=== PATIENT | female | born 2000 | race Caucasian/White ===

== ENCOUNTER 2022-03-09 12:25 | Emergency (ER) | payer OTHER, SELFPAY ==
[2022-03-09 12:34] VITALS: BP 117/61; PULSE 77; RESP 16; TEMP 36.8; O2SAT 100
[2022-03-09 12:38] VITALS: BP 117/61; PULSE 77; RESP 16; TEMP 36.8; O2SAT 100
--- NOTE | 2022-03-09 13:10 | ED.BACK ---
HPI - Back Pain/Injury General Chief Complaint: Back Pain/Injury Stated Complaint: Low Back Pain Time Seen by Provider: 03/09/22 13:03 Source: patient and RN notes reviewed Mode of arrival: ambulatory Limitations: no limitations History of Present Illness HPI Narrative: Patient presents today complaining of bilateral low back pain, right greater than left x4 to 5 days. Denies radiation of the pain. Denies numbness or tingling in the legs or genitals. Denies any loss of bowel or bladder control. She believes her pain may have originated after lifting heavy objects and unloading a truck at work, but she is not certain. Denies any known injury or trauma. She currently rates her pain 06/17 and has been taking Tylenol with mild relief. Denies any history of back surgeries, but reports history of sciatica. MD elicited complaint: back pain Related Data Home Medications Medication Instructions Recorded Confirmed dicyclomine 10 mg PO TID PRN 10/14/19 03/09/22 escitalopram oxalate 20 mg PO DAILY 03/09/22 03/09/22 Allergies Allergy/AdvReac Type Severity Reaction Status Date / Time Penicillins Allergy Unknown Rash Verified 03/09/22 12:37 Sulfa (Sulfonamide Allergy Unknown Rash Verified 03/09/22 12:37 Antibiotics) Review of Systems Review of Systems: CONSTITUTIONAL: Denies body aches, fever, chills, or sweats. EYES: Denies visual changes, redness, or discharge. ENT: Denies rhinorrhea, congestion, sore throat, or otalgia. CARDIOVASCULAR: Denies chest pain, palpitations, or edema. RESPIRATORY: Denies cough or dyspnea. GASTROINTESTINAL: Denies abdominal pain, nausea, vomiting, or diarrhea. GENITOURINARY: Denies dysuria or hematuria. SKIN: Denies rash, itching, or wounds. MUSCULOSKELETAL: Denies joint pain, or myalgia. + Low back pain NEUROLOGIC: Denies headache, numbness, tingling, or weakness. PSYCH: Denies depression or anxiety. PMFSH Comments At time of signature, I have reviewed and agree with nursing past medical, surgical, social and family history unless otherwise noted. Please see nursing chart for further information. There is no relevant family history pertinent to the presenting complaint Exam Narrative: GENERAL: Well-appearing, well-nourished, and in no acute distress. HEAD: Normocephalic, atraumatic. EYES: EOMI. No redness or drainage. Conjunctivae normal. ENT: Mucous membranes pink and moist. NECK: Normal AROM. CHEST: No respiratory distress. MUSCULOSKELETAL: No bony tenderness of the spine. Right lower lumbar paraspinal muscle tenderness. Patient localizes pain in the bilateral lower lumbar paraspinal muscles. No SI joint tenderness bilaterally. Distal sensation intact. Saddle sensation intact. Capillary refill normal. Dorsiflexion and plantarflexion equal and strong against resistance. Patellar reflexes 2+ bilaterally EXTREMITIES: Normal range of motion. No edema. SKIN: Warm, dry, no rash. Capillary refill normal. Normal skin turgor. NEURO: No focal deficits. Alert and oriented x3. Gait steady. PSYCH: Normal affect. No signs of depression or anxiety. Course Course Level of Care: Express Care Visit Vital Signs Vital signs: Vital Signs Temperature 98.3 F 03/09/22 12:34 Pulse Rate 77 03/09/22 12:34 Respiratory Rate 16 03/09/22 12:34 Blood Pressure 117/61 03/09/22 12:34 Pulse Oximetry 100 03/09/22 12:34 Temperature 98.3 F 03/09/22 12:38 Pulse Rate 77 03/09/22 12:38 Respiratory Rate 16 03/09/22 12:38 Blood Pressure 117/61 03/09/22 12:38 Pulse Oximetry 100 03/09/22 12:38 Reviewed MDM - Back Pain/Injury Differential Diagnosis Differential diagnosis: Likely lumbar radiculopathy and strain of lumbar region Critical Care Time Critical Care Time Critical Care Time: No Discharge Plan Discharge Clinical Impression: Low back strain Qualifiers: Encounter type: initial encounter Qualified Code(s): S39.012A - Strain of muscle, fascia and tendon of
== END 2022-03-09 13:21 | disposition home or self-care (01) ==
PROVIDERS: Emergency Provider Nurse Practitioner
DX: S39.012A Strain of muscle, fascia and tendon of lower back, initial encounter (principal); X50.0XXA Overexertion from strenuous movement or load, initial encounter
CPT/HCPCS: 99213; G0463

== ENCOUNTER 2023-03-29 17:22 | Emergency (ER) | payer OTHER, SELFPAY ==
[2023-03-29 17:28] VITALS: BP 144/56; PULSE 91; RESP 20; TEMP 36.4; O2SAT 100
--- NOTE | 2023-03-29 17:31 | ED.BACK ---
HPI - Back Pain/Injury General Chief Complaint: Back Pain/Injury Stated Complaint: lower back pain Time Seen by Provider: 03/29/23 17:32 Source: patient and RN notes reviewed Mode of arrival: ambulatory Limitations: no limitations History of Present Illness HPI Narrative: 23-year-old female presents with concern for low back pain that started Wednesday. She reports history of low back pain. She denies any injury or trauma. She denies loss of bowel or bladder function, perianal anesthesia, weakness in any extremity. She denies fever, abdominal pain, dysuria, hematuria, urine frequency. She reports she took Aleve. MD elicited complaint: back pain Related Data Home Medications Medication Instructions Recorded Confirmed escitalopram oxalate 20 mg tablet 20 mg PO DAILY 03/09/22 03/29/23 Allergies Allergy/AdvReac Type Severity Reaction Status Date / Time Penicillins Allergy Unknown Rash Verified 03/09/22 12:37 Sulfa (Sulfonamide Allergy Unknown Rash Verified 03/09/22 12:37 Antibiotics) Review of Systems Review of Systems: CONSTITUTIONAL: Denies malaise, chills, sweats, or fever. CARDIOVASCULAR: Denies chest pain, palpitations, or edema. RESPIRATORY: Denies cough or dyspnea. GASTROINTESTINAL: Denies abdominal pain, nausea, vomiting, diarrhea, loss of bowel function GENITOURINARY: Denies dysuria, hematuria, frequency, loss of bladder function. SKIN: Denies rash or itching. MUSCULOSKELETAL: Reports low back pain NEUROLOGIC: Denies numbness, weakness, or headache. All systems reviewed & are unremarkable except as noted in HPI and below PMFSH Comments At time of signature, agree with nursing past medical, surgical, social and family history. There is no relevant family history pertinent to the presenting complaint Exam Narrative: GENERAL: Well-appearing, well-nourished, and in no acute distress. HEAD: Normocephalic, atraumatic. EYES: PERRLA and EOMI. NECK: Supple. No lymphadenopathy. CHEST: Clear to auscultation. No respiratory distress. HEART: Regular rate and rhythm. Distal pulses palpable and equal, cap refill <3 seconds ABDOMEN: Soft, nontender, nondistended, normal active bowel sounds, no palpable or pulsatile masses. No CVA tenderness MUSCULOSKELETAL: Normal range of motion and strength in all extremities; 5/5 strength with hip flexion and extension, dorsiflexion and extension, knee flexion and extension, plantar flexion and extension. Normal sensation in dermatomal distributions with sensitivity to light touch and pain. No midline back tenderness to palpation. No paraspinal tenderness. Transfers from lying to sitting to standing. SKIN: Warm, dry, no rash. No ecchymosis, erythema, open wounds to back. NEURO: No focal deficits. Alert and oriented x3. Reflexes intact. Normal gait. PSYCH: Normal mood and affect Course Course Emergency Course: Patient is aware of diagnosis, understands and agrees to treatment plan. Anticipatory guidance given. Patient agrees to follow-up as directed and is aware of reasons to seek care at the emergency department. Portions of this record may have been created with voice recognition software Level of Care: Express Care Visit Vital Signs Vital signs: Reviewed. MDM - Back Pain/Injury MDM Narrative Medical decision making narrative: No risk factors or findings concerning for epidural abscess, diskitis, vertebral osteomyelitis, cord compression, cauda equina, vertebral fracture or bone malignancy, AAA, or pyelonephritis. Patient instructed to consider further imaging and workup through their primary care physician as an outpatient if symptoms persist. Critical Care Time Critical Care Time Critical Care Time: No Discharge Plan Discharge Clinical Impression: Nonspecific low back pain Patient Disposition: Home, Self-Care Condition: Stable Instructions: Acute Low Back Pain (ED) Additional Instructions: Please follow up with your Primary Care Doctor wi
== END 2023-03-29 17:46 | disposition home or self-care (01) ==
PROVIDERS: Emergency Provider Nurse Practitioner
DX: M54.50 Low back pain, unspecified (principal)
CPT/HCPCS: 99213; G0463

== ENCOUNTER 2023-11-04 17:39 | Emergency (ER) | payer OTHER, SELFPAY ==
[2023-11-04 17:44] VITALS: BP 137/88; PULSE 90; RESP 16; TEMP 36.4; O2SAT 100
--- NOTE | 2023-11-04 17:45 | ED.EAR ---
HPI - Ear Problem General Chief complaint: Ear Stated complaint: ear infection Time Seen by Provider: 11/04/23 17:46 Source: patient Mode of arrival: ambulatory Limitations: no limitations History of Present Illness HPI Narrative: Patient is a 23-year-old female who presents with bilateral ear pain, sore throat and congestion that started Wednesday. Patient has been taking Sudafed and Tylenol with no relief. Patient states she has history of ear infections and strep throat as a child. Denies any fever, chills, nausea, vomiting, diarrhea. MD Complaint: ear pain Related Data Home Medications Medication Instructions Recorded Confirmed escitalopram oxalate 20 mg tablet 20 mg PO DAILY 03/09/22 03/29/23 albuterol 11/04/23 Allergies Allergy/AdvReac Type Severity Reaction Status Date / Time Penicillins Allergy Unknown Rash Verified 03/09/22 12:37 Sulfa (Sulfonamide Allergy Unknown Rash Verified 03/09/22 12:37 Antibiotics) Review of Systems Review of Systems: All systems reviewed & are unremarkable except as noted in HPI and below Constitutional: Constitutional: Denies body ache(s), Denies chills, Denies fever(s), Denies headache(s) and Denies malaise Eyes: Eyes: Denies blurry vision, Denies eye discharge and Denies irritation ENT: Reports otalgia, Denies headache(s), Reports nasal congestion, Denies nasal discharge and Reports sore throat Cardiovascular: Cardiovascular: Denies chest pain, Denies edema, Denies palpitations and Denies dyspnea on exertion Respiratory: Respiratory: Denies cough and Denies dyspnea on exertion Gastrointestinal: Gastrointestinal: Denies abdominal pain, Denies diarrhea, Denies nausea and Denies vomiting Musculoskeletal: Musculoskeletal: Denies back pain, Denies arthralgias and Denies muscle weakness Integumentary/Breasts: Skin/Breast: Denies pruritus and Denies rash Neurologic: Denies headache(s) Psychiatric: Psychiatric: Reports no additional psychiatric complaints Endocrine: Endocrine: Denies palpitations PMFSH Comments At time of signature, agree with nursing past medical, surgical, social and family history. There is no relevant family history pertinent to the presenting complaint? Exam Const: General: cooperative, healthy appearing, no acute distress and well nourished Nutritional Appearance: well nourished Orientation/consciousness: patient oriented x3 Limitations: no limitations HENMT: Head: normal to inspection, normocephalic and atraumatic Ears: hearing grossly normal bilaterally, EAC's normal, no periauricular adenopathy and TM abnormal Face/Nose/Sinus: Normal external nose present, Normal nares present, Normal nasal mucous membranes and turbinates present, No nasal discharge present, normal facial exam and sinuses nontender Face and sinus: normal facial exam and sinuses nontender Mouth: Yes Normal oral and palatal mucosa present, Yes lip normal, Yes tongue normal and Yes moist mucous membranes Throat: tonsils normal, uvula midline, posterior oropharynx abnormal erythema and exudates and postnasal drainage Eyes: General: appearance normal, both eyes and all related structures Alignment and Position: alignment normal and position normal Eyelids: eyelids normal Pupils: Equal, round and reactive pupils present EOM: EOMs intact bilaterally Neck: Neck: normal visual inspection, full ROM, no lymphadenopathy and supple Chest: Chest palpation & inspection: normal inspection of the chest Resp: Effort & Inspection: normal respiratory effort and able to speak in complete sentences Auscultation: clear to auscultation bilaterally, no crackles, no rales, no rhonchi and no wheezes Cardio: Rate: regular rate Rhythm: regular rhythm Heart sounds: S1 normal heart sound present and S2 normal heart sound present Skin: General skin exam: normal color and no rashes or lesions noted Neuro: General: patient oriented x3 and moves all extremities Cranial nerves: Yes Equal, round and re
== END 2023-11-04 18:53 | disposition home or self-care (01) ==
PROVIDERS: Emergency Provider Nurse Practitioner Family
DX: J06.9 Acute upper respiratory infection, unspecified (principal)
CPT/HCPCS: 87081; 87880; 99213; G0463

== ENCOUNTER 2025-11-02 15:12 | Emergency (ER) | payer OTHER, SELFPAY ==
--- OUTSIDE RECORDS SUMMARY | 2025-11-02 15:15 | XMS_ITS | Clinical Summary ---
Author Organization [facility] Address [address] [address] Phone Care Team Providers Care [employer] Business Administrator Name Role Phone Mariela Laurent NP Primary Care Provider [phone] Allergies Active Allergy Reactions Criticality Noted Date Comments Milk Flatulence Low 01/14/2021 Penicillins Rash Medium Sulfa (Sulfonamide Antibiotics) Rash Medium Medications loratadine-pseu doephedrine (CLARITIN-D 24 HOUR) 10-240 mg per 24 hr tablet take 1 tablet by oral route every day 0 0 05/02/2015 Active albuterol HFA (PROVENTIL HFA,VENTOLIN HFA,PROAIR HFA) 90 mcg/actuation inhaler Inhale 2 puffs every 6 (six) hours as needed for wheezing 1 each 11/10/2023 Active escitalopram (LEXAPRO) 20 mg tablet Take 1 tablet (20 mg total) by mouth daily 90 tablet 3 09/05/2025 Active atomoxetine (STRATTERA) 80 mg capsule Take 1 capsule (80 mg total) by mouth daily 90 capsule 3 09/05/2025 09/05/20 26 Active Active Problems Problem Noted Date Diagnosed Date Dermatitis 04/27/2025 Assessment & Plan (04/27/2025 4:09 PM CDT): Recurrent major depressive disorder, in remissio n 11/18/2024 Assessment & Plan (04/27/2025 4:09 PM CDT): Encounter for medical examination to establish c are 11/18/2024 Encounter for hepatitis C sc reening test for low risk patient 11/18/2024 Screening for diabetes mellitus 11/18/2024 Screening, anemia, deficiency, iron 11/18/2024 Screening for lipid disorders 11/18/2024 Screening for thyroid disorder 11/18/2024 Nicotine dependence due to vaping tobacco produc t 11/18/2024 Assessment & Plan (04/27/2025 4:09 PM CDT): ADHD, predominantly inattentive type 04/16/2021 Assessment & Plan (04/27/2025 4:09 PM CDT): Panic attacks 03/31/2021 Chronic diarrhea 11/20/2018 Assessment & Plan (11/21/2018 12:00 AM BUTTERMAKER HELPER): Suspected to be IBS-D. Impairing ability to participate in social activities. Attempted an Imodium. Will attempt Bentyl as well as referral to GI. 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 Encourage moderate intensity exercise 30 minutes 5 days per week. She was counseled on the importance of obtaining a healthy weight and the risks of obesity. Weight loss recommended. Assessment & Plan (07/20/2018 9:57 AM CDT): Obesity is unchanged. BMI Follow-up includes: nutrition counseling and education provided. Assessment & Plan (04/07/2018 11:04 AM CDT): BMI Follow-up includes: nutrition counseling, exercise counseling and education provided. Class 3 severe obesity due t o excess calories with serious comorbidity and body mass index (BMI) of 45.0 to 49.9 in adult 03/28/2017 Overview (04/02/2017): Obesity, morbid, BMI 40.0-49.9 Assessment & Plan (04/27/2025 4:09 PM CDT): BMI 49.32. Discussed healthy diet, routine exercise and encouraged weight loss. Assessment & Plan (11/21/2018 12:01 AM BUTTERMAKER HELPER): Obesity is worsening. Counseling was provided to the child and family regarding behavior modifications and physical activity. Regular aerobic exercise program discussed. Anxiety, generalized 03/02/2017 Overview (04/02/2017): BARI (generalized anxiety disorder) Assessment & Plan (04/27/2025 4:09 PM CDT): Assessment & Plan (11/21/2018 12:00 AM BUTTERMAKER HELPER): Psychological condition is unchanged. Continue current treatment regimen. Regular aerobic exercise. Referral to psychological counseling. Psychological condition will be reassessed 6-8 weeks. . Acute asthma 12/19/2015 Overview (02/12/2017): Asthma, acute Resolved Problems Problem Noted Date Diagnosed Date Resolved Date Diarrhea 01/04/2019 03/10/2023 Overview (01/11/2019): Added automatically from request for surgery [id number] Adiposity 05/02/2015 08/03/2017 Overview (02/12/2017): Obesity Otitis media 01/21/2015 08/03/2017 Overview (02/18/2017): Otitis media Encounters Date Type Department Care Team Description 09/05/2025 8:30 AM CDT Telemedicine [facility] Primary Care at [address] [id number] Mariela Laurent NP Anxiety, generalized (Primary Dx); Panic attacks; ADHD, predominantly inattentive type; Recurrent major depressive disorder, in remission from Last 3 Months Immunizations Immunization Administration Dates Next Due DTaP 06/10/2006, 2,2001,06/03,2001 HPV, Quadrivalent 11/29/2012,07/26/2012,05/17/20 12 HPV, Unspecified 07/26/2012,05/17/2012 Hep A, Pediatric 11/29/2012,05/17/2012 Hep B / HiB 04/27/2002,2001,2001 Hep B, Adolescent or Pediatric 04/27/2002,2000,2001 HiB 06/10/2006 Hib (PRP-T) 06/10/2006, 2,2001,03/31 IPV 06/10/2006, 1,2001,03/31 Influenza, Quadrivalent, Spl it, Preservative Free, Intramuscular 09/22/2021,07/20/2018,08/03/2017 Influenza, Trivalent, Preser vative Free, Intramuscular 11/29/2012 Influenza, Unspecified 09/03/2025(Deferr ed: Patient Refused),07/27/2025(Deferred: Patient Refused),12/21/2024(Deferred: Patient Refused),11/16/2024(Deferred: Patient Refused),08/14/2024(Deferred: Patient Refused),08/14/2024(Deferred: Patient Refused) MMR 06/10/2006,02/09/2002 Meningococcal B, OMV (Bexsero) 03/12/2023 Meningococcal Conjugate (Menveo) 07/20/2018 Meningococcal MCV4, Unspecified 07/26/2012 Meningococcal MCV4P (Menactra) 07/26/2012 Pfizer SARS-CoV-2 Monovalent Vaccination (12+ Yrs) PURPLE 02/05/2022,02/24/2021,02/03/2021 Pneumococcal Conjugate 7-Valent 2001,06/03,2001 Pneumococcal Conjugate PCV 13 2001, 001,2001 Tdap 03/12/2023,05/17/2012 Varicella 07/26/2012,02/09/2002 Medical History Medical History Date Comments Diarrhea for almost 1 yea r Asthma 11/08/2014 triggered by all ergies and exercise Seasonal allergies Anxiety 03/08/2017 on Zoloft Scapulothoracic syndrome Obesity Stuffy and runny nose 01/10/2019 New onset nasal congestion 01/10/19, used one dose of albuterol last week for cough, no longer has sx Abdominal pain no vomiting Twin Family History Medical History Relation Name Comments Cancer Maternal Grandfather Michael king Diabetes Maternal Grandfather Michael king Diabetes Other Anxiety disorder Sister Genna king Depression Sister Genna king Relation Name Status Comments Maternal Grandfather Michael king Other Sister Genna king Social History Tobacco Use Types Packs/Day Years Used Date Smoking Tobacco: Every Day Vaping Smokeless Tobacco: Never Tobacco Cessation:Ready to Q uit: Not Asked; Counseling Given: Not Answered Alcohol Use Standard Drinks/Week Comments No 0 (1 standard drink = 0.6 oz pur e alcohol) PHQ-2 Answer Date Recorded PHQ-2 Total Score (If total score is 3 or more points, staff should administer the PHQ-9) 3 11/17/2024 PHQ-9 Answer Date Recorded PHQ-9 Total Score 16 11/17/2024 Personal Safety Answer Date Recorded Have you ever been in or are you currently in a harmful physical or emotional relationship or is someone making you feel afraid or unsafe? Denies 04/06/2025 Comments No Sex and Gender Information Value Date Recorded Sex Assigned at Not on file Legal Sex Female 3:36 AM BUTTERMAKER HELPER Gender Identity Not on file Sexual Orientation Not on file Last Filed Vital Signs Vital Sign Reading Time Taken Comments Blood Pressure 120/80 04/27/2025 12:57 PM CDT Pulse 82 04/27/2025 12:57 PM CDT Temperature 36.7 C (98.1 F) 04/27/2025 12:57 PM CDT Respiratory Rate 10 04/06/2025 3:30 PM CDT Oxygen Saturation 99% 04/27/2025 12:57 PM CDT Inhaled Oxygen Concentration - - Weight 130.2 kg (287 lb) 05/09/2025 11:15 AM CDT Height 162.6 cm (5' 4.02) 09/05/2025 8:18 AM CD T Body Mass Index 49.24 05/09/2025 11:15 AM CDT Plan of Treatment Health Maintenance Due Date Last Done Comments Cervical Cancer Screening 2001 Pneumococcal vaccine <65 (1 of 1 - PPSV23, PCV20, or PCV21) 2007 2001, 2001, 2001, Additional history exists Covid-19 Vaccine ( season) 2025 02/05/2022, 02/05/2022, 02/24/2021, Additional history exists Depression Screening 11/17/2025 11/17/2024, 11/17/2024, 03/12/2023, Additional history exists Regular Well Visit/Exam 18-64 11/17/2025 11/17/2024, 03/12/2023 Influenza Vaccine (#1) 2026 , 07/20/2018, 08/03/2017, Additional history exists Postponed from 07/09/2025 (Patient declined, but will receive in the future) DTaP/Tdap/Td Vaccine (8 - Td or Tdap) 03/12/2033 03/12/2023, 05/17/2012, 06/10/2006, Additional history exists Hepatitis B Screening Completed 04/27/2002 , 04/27/2002, 2001, Additional history exists Varicella Vaccines Completed 07/26/2012, 02/09/2002 HPV Vaccines Completed 11/29/2012, 07/09, 07/26/2012, Additional history exists Hepatitis C Screening Completed 11/17/2024 Procedures Procedure Name Priority Date/Time Associated Diagnosis Comments HEPATITIS C ANTIBODY Routine 11/17/2024 12:00 PM BUTTERMAKER HELPER Encounter for hepatitis C screening test for low risk patient from Last 3 Months or Most Recently Relevant to Health Maintenance Results * Hepatitis C antibody Blood (11/17/2024 12:00 PM BUTTERMAKER HELPER) Hep C Ab Nonreactive Nonreactive Comment: Interpretive Data Nonreactive: Antibodies to HCV not detected. Does NOT exclude the possibility of recent exposure to HCV. Equivocal: Equivocal for HCV antibodies. Supplemental molecular testing will be automatically performed to determine infection status in accordance with current CDC screening recommendations. Reactive: Positive for HCV antibodies. This may represent current or past HCV infection. Supplemental molecular testing will be automatically performed to determine current infection status in accordance with current CDC screening recommendations. Interpretive data was last revised on 2020. Blood 11/17/2024 12:0 0 PM BUTTERMAKER HELPER 11/17/2024 7:09 PM BUTTERMAKER HELPER us Mariela Laurent NP LAB MICROBIOLOGY - GENERAL OR DERABLES Final Result Performing Organization Address City/State/ZIP [place] Phone Number [facility] [phone] [place] [address] from Last 3 Months or Most Recently Relevant to Health Maintenance Insurance [employer] [facility] [id number] [facility] [id number] [facility] Care Teams Church Business Administrator Relationship Specialty Start Date End Date Mariela Laurent NP [address] [address] PCP - General Family Medicine 11/17/24
--- OUTSIDE RECORDS SUMMARY | 2025-11-02 15:15 | XMS_ITS | Clinical Summary ---
Author Organization [facility] Address [address] [place] [address] Phone Care Team Providers Care Record Pressman Name Role Phone Renato Reyna MD Primary Care Provider Allergies Active Allergy Reactions Criticality Noted Date Comments Penicillins Rash 07/26/2018 Sulfa Antibiotics Rash 07/26/2018 Medications sertraline (ZOLOFT) 50 MG Tablet Take 50 mg by mouth 2 times daily. Active escitalopram (LEXAPRO) 10 MG Tablet Take 10 mg by mouth daily. 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 Anxiety 03/31/2021 Panic attacks 03/31/2021 Family History Medical History Relation Name Comments No Known Problems Father Bran Hypertension Mother Maryjane Anxiety disorder Sister Hannah (20) Depression Sister Hannah (20) Relation Name Status Comments Father Bran Alive Mother Maryjane Alive Sister Hannah (20) Alive Social History Tobacco Use Types Packs/Day Years Used Date Smoking Tobacco: Never Smokeless Tobacco: Never Alcohol Use Standard Drinks/Week Comments No 0 (1 standard drink = 0.6 oz pur e alcohol) Sexually Active Control Partners Comments Not Currently Comments No Sex and Gender Information Value Date Recorded Sex Assigned at Not on file Legal Sex Female 9:33 PM CDT Gender Identity Not on file Sexual Orientation Not on file Last Filed Vital Signs Vital Sign Reading Time Taken Comments Blood Pressure 153/85 10/12/2019 4:05 PM MESS ATTENDANT CREW Pulse 71 10/12/2019 4:05 PM MESS ATTENDANT [employer] Temperature 36.7 C (98 F) 10/12/2019 4:05 PM MESS ATTENDANT [employer]W Respiratory Rate 16 10/12/2019 4:05 PM MESS ATTENDANT [employer]W Oxygen Saturation 100% 10/12/2019 4:05 PM MESS ATTENDANT [employer]W Inhaled Oxygen Concentration - - Weight 117.9 kg (260 lb) 10/12/2019 4:05 PM MESS ATTENDANT [employer]W Height 162.6 cm (5' 4) 10/12/2019 4:05 PM MESS ATTENDANT [employer]W Body Mass Index 44.63 10/12/2019 4:05 PM MESS ATTENDANT CREW Plan of Treatment Health Maintenance Due Date Last Done Comments Hepatitis C Virus (HCV) Screening 2001 Influenza Immunization (#1) 2025 11/29/2012 SARS-COV-2 Immunization ( season) 2025 02/24/2021, 02/03/2021 Respiratory Syncytial Virus (RSV) Immunization (Adult) (1 - 1-dose 75+ series) 01/26/2076 Pneumococcal Immunization Combined Aged Out 2001, 2001, 2001 No longer eligible based on patient's age to complete this topic Hepatitis B Immunization Completed 002, 2001, 2001 DTaP/Tdap/Td Immunization Discontinued 2011, 06/10/2006, 04/27/2002, Additional history exists TdaP Immunization Completed 05/17/2012 Meningococcal Immunization (ACWY) Aged Out 07/26/2012 No longer eligible based on patient's age to complete this topic Varicella Immunization Completed 07/26/2012, 2001 Human Papillomavirus (HPV) Immunization Completed 11/29/2012, 07/26/2012, 05/17/2012 Rotavirus Immunization Aged Out No lo nger eligible based on patient's age to complete this topic Goals Goal Patient Goal Type Associated Problems Recent Progress Patient-Stated? Author I would like more self confidence, I would like to learn coping skills to help calm myself down. Behavioral Health On track(2020 4:03 PM CDT) Yes Elizabet Bonilla, SAND CUTTING MACHINE OPERATOR Note: Goal Reviewed with: patient today Readiness to change: Ready to change Department associated with goal: [facility] Steps to achieve goal: 1. will identify and process contributing factors/barriers to self-confidence. 2. will be able to identify, and report strong belief, in three or more personal strengths, qualities and/or abilities. 3. will identify at least two activities to engage in for the purpose of strengthening self confidence. 4. will engage in at least one activity to strengthen self-confidence. Behavioral Health Behavioral Health On track(2020 4:03 PM CDT) Chelly Mock LCSW Note: Lula will have a decrease in procrastination, and will follow through with identified goals Goal Reviewed with: patient today Readiness to change: Ready to change Department associated with goal: [facility] Steps to achieve goal: will identify at least two personal goals. will identify at least two skills/activities/habits that may improve motivation and follow through will identify and begin implementing at least two action steps to work toward one personal goal. will identify and begin implementing at least one skill/activity/habit to improve motivation and decrease procrastination Will attend 12-19 individual counseling sessions [facility] [employer] [facility] Care Teams Record Pressman Relationship Specialty Start Date End Date Renato Reyna MD [address] [facility] [id number] [place] [phone] PCP - General Family Medicine 4/9/21
--- OUTSIDE RECORDS SUMMARY | 2025-11-02 15:15 | XMS_ITS | Clinical Summary ---
Author Organization [facility] lin Address [address] [facility] [address] [place] [address] Care Team Providers Care Shell Plater Name Role Phone No, Pcp MULTIFOCAL BUTTON GRINDER Primary Care Provider Unavailabl e Social History Tobacco Use Types Packs/Day Years Used Date Smoking Tobacco: Never Assessed Comments Unknown Sex and Gender Information Value Date Recorded Sex Assigned at Not on file Legal Sex Female 4:12 PM EST Gender Identity Not on file Sexual Orientation Not on file Plan of Treatment Not on file Medical Devices Not on file Insurance [employer] Care Teams Shell Plater Relationship Specialty Start Date End Date No, Pcp, MULTIFOCAL BUTTON GRINDER N/A Do not use PCP - General Family Medicine 09/29/20
[2025-11-02 15:24] VITALS: BP 149/88; PULSE 83; RESP 16; TEMP 36.3; O2SAT 100
--- NOTE | 2025-11-02 15:59 | ED_ITS ---
HPI - Ear Problem General Chief complaint: Ear Stated complaint: Ear Pain/Fever Time Seen by Provider: 11/02/25 15:40 Source: patient Mode of arrival: ambulatory Limitations: no limitations History of Present Illness HPI Narrative: Lula is a 25-year-old female patient presenting to the clinic today with complaints of nasal congestion, mild cough, and bilateral ear pain x2 days. She reports she felt feverish but did not check her temperature. Has been taking [id number] cold and flu medications/[facility]in[place] for her symptoms. Denies any chest pain or shortness of breath. Related Data Home Medications ?Medication ?Instructions ?Recorded ?Confirmed ?Last Taken ?Type escitalopram oxalate 20 mg tablet 20 mg PO DAILY 03/0903/29/23 Unknown History albuterol 11/04/23 Unknown History atomoxetine 80 mg capsule mg PO 11/02/25 Unknown Hist ory Allergies Allergy/AdvReac Type Severity Reaction Status Date / Time Penicillins Allergy Unknown Rash Verified 11/02/25 15:27 Sulfa (Sulfonamide Allergy Unknown Rash Verified 11/02/25 15:27 Antibiotics) [facility] Comments At the time of my signature, I reviewed and agree with the nursing past medical, surgical, social, and family history. There is no relevant family history pertinent to the patient complaint. Exam Narrative: General: Well-developed, morbidly obese, in no apparent distress Head: Normocephalic, atraumatic Eyes: Pupils equally round and reactive to light bilaterally, EOM intact, sclera and conjunctive clear, no discharge, lids normal Ears: TMs intact and clear, ear canals clear, no drainage, grossly hearing normal. Nose: Nares patent, clear nasal discharge, no inflammation, no sinus tenderness. Mouth: Oropharynx without lesions or masses, good dentition, MMM. Neck: Supple, trachea midline, no enlargement of anterior or posterior cervical nodes, no thyroid masses or goiter palpable. Cardio: Regular rate and rhythm, s1 and s2 normal, no murmur appreciated. Resp: Clear to auscultation bilaterally anteriorly and posteriorly, no rhonchi, rales, wheezing or rubs Course Course Level of Care: Express Care Visit Vital Signs Vital signs: Vital Signs Temperature 36.3 C L 11/02/25 15:24 Pulse Rate 83 11/02/25 15:24 Respiratory Rate 16 11/02/25 15:24 Blood Pressure 149/88 H 11/02/25 15:24 Pulse Oximetry 100 11/02/25 15:24 Oxygen Delivery Room Air 11/02/25 15:24 Temperature 36.3 C L 11/02/25 15:24 Pulse Rate 83 11/02/25 15:24 Respiratory Rate 16 11/02/25 15:24 Blood Pressure 149/88 H 11/02/25 15:24 Pulse Oximetry 100 11/02/25 15:24 Oxygen Delivery Room Air 11/02/25 15:24 MDM MDM Narrative Medical decision making narrative: At the time of visit patient is resting comfortably on the exam table. Patient appears to be nontoxic. Complaints of nasal congestion, mild cough, and bilateral ear pain x2 days. She reports she felt feverish but did not check her temperature. Has been taking [id number] cold and flu medications/Christin- [place] for her symptoms. Denies any chest pain or shortness of breath. On exam patient has bilateral TMs intact and clear, clear nasal drainage, no anterior turbinate inflammation, oral pharynx normal, lung sounds are clear, heart rates regular rate and rhythm. Plan: I suspect patient has URI/bilateral otalgia. No sign of infection in the clinic today. Supportive measures were discussed with the patient and they voiced understanding discharge instructions and agrees to treatment plan. Return precautions reviewed Differential Diagnosis Differential Diagnosis: Differential diagnostic considerations for upper respiratory infection include upper respiratory infection, croup, otitis media, sinusitis, viral infection, bronchitis, influenza, pharyngitis, strep, uvulitis. Discharge Plan Discharge Clinical Impression: URI (upper respiratory infection) Qualifiers: URI type: unspecified URI Qualified Code(s): J06.9 - Acute upper respiratory infection, unspecified Acute otalgia Qualifiers: Laterality: bilateral Qualified Code(s): H92.03 - Otalgia, bilateral Patient Disposition: Home Condition: Stable Instructions: Antibiotic Form, Earache (ED), Cold Symptoms (ED) Additional Instructions: No sign of bacterial infection in the clinic today. Increase fluids and stay well hydrated May take Tylenol or motrin as directed on bottle for pain/fever May use Flonase 1 spray in each nare daily May take OTC antihistamines such as Zyrtec or Claritin daily as directed on bottle May apply Vicks vapor rub to chest to open sinuses Sinus rinses for congestion Cepacol spray, cough drops, throat lozenges, warm tea with honey/lemon, gargle salt water to soothe throat BRAT diet for diarrhea Clear liquids x 24 hours then advance as tolerated for nausea/vomiting Go to the ED if you develop a worsening in your condition- high fever not controlled by Tylenol or Motrin, dehydration, weakness, lethargy, shortness of breath, or chest pain. Follow up with your PCP in 3-5 days if symptoms persist. Patient Language: Citizen Of [place] Prescriptions: No Action atomoxetine 80 mg capsule PO escitalopram oxalate 20 mg tablet 20 mg PO DAILY albuterol Follow-up/Referrals: Mehran,Mariela Byers CNP [Primary Care Provider] Time of Disposition: 16:03 Quality NIHSS Nursing Documentation ED NIHSS nursing documentation: reviewed/agree
== END 2025-11-02 16:16 | disposition home or self-care (01) ==
PROVIDERS: Emergency Provider Nurse Practitioner Family; PCP Nurse Practitioner
DX: J06.9 Acute upper respiratory infection, unspecified (principal); H92.03 Otalgia, bilateral; J45.909 Unspecified asthma, uncomplicated; F90.9 Attention-deficit hyperactivity disorder, unspecified type; F41.9 Anxiety disorder, unspecified; F32.A Depression, unspecified
CPT/HCPCS: 99211; G0463